=== PATIENT | male | born 2000 | race Hispanic/Latino ===

== ENCOUNTER 2020-11-03 12:37 | Emergency (ER) | payer SELFPAY ==
[2020-11-03] MEDS ORDERED: Fluorescein Opthalmic Strip ONE (13:37)
[2020-11-03] MEDS ORDERED: Proparacaine 0.5% Opth 15 ML BOT ONE (13:37)
== END 2020-11-03 14:40 | disposition home or self-care (01) ==
LOC: ERS 12:37
DX: S05.11XA Contusion of eyeball and orbital tissues, right eye, initial encounter (principal); S05.01XA Injury of conjunctiva and corneal abrasion without foreign body, right eye, initial encounter; H11.31 Conjunctival hemorrhage, right eye; W25.XXXA Contact with sharp glass, initial encounter
CPT/HCPCS: 99283